=== PATIENT | female | born 1980 | race Caucasian/White ===

== ENCOUNTER 2021-11-06 01:09 | Emergency (ER) | payer MEDICAID ==
[~2021-11-06] VITALS: Ht 167.6 cm; Wt 54.0 kg
[~2021-11-06 01:09] MED LIST: CITA20TA28 PO
[2021-11-06 01:16] VITALS: BP 132/76
== END 2021-11-06 02:49 | disposition left against medical advice (07) ==
LOC: ER 01:09
DX: L02.416 Cutaneous abscess of left lower limb (principal); Z53.21 Procedure and treatment not carried out due to patient leaving prior to being seen by health care provider

== ENCOUNTER 2023-12-07 06:16 | Emergency (ER) | payer MEDICAID ==
[~2023-12-07] VITALS: Ht 167.6 cm; Wt 54.0 kg
[2023-12-07 06:31] VITALS: BP 101/59; PULSE 66; RESP 16; TEMP 98.3; O2SAT 100
[2023-12-07] MEDS ORDERED: AMOX-580 PO (07:33)
[2023-12-07] MEDS ORDERED: HYDR-3973 PO (07:33)
== END 2023-12-07 08:10 | disposition home or self-care (01) ==
LOC: ER 06:16
DX: K08.89 Other specified disorders of teeth and supporting structures (principal); F41.9 Anxiety disorder, unspecified; Z79.2 Long term (current) use of antibiotics; Z79.899 Other long term (current) drug therapy
CPT/HCPCS: 99283